=== PATIENT | female | born 1995 | race Asian ===

== ENCOUNTER → 2017-07-04 | Outpatient (CLI) | payer OTHER | LOC: FIMAGING 14:00 | PROVIDERS: ATTEND Internal Medicine | DX: M41.86 Other forms of scoliosis, lumbar region (principal) ==

== ENCOUNTER → 2017-08-28 | Outpatient (CLI) | payer OTHER ==
[~2017-08-28] MED LIST: GADOBUTROL 10 ML VIAL IVP ONE
== END ==
LOC: FIMAGING 13:49
PROVIDERS: ATTEND Psychiatry & Neurology Neurology
DX: G93.89 Other specified disorders of brain (principal); F07.81 Postconcussional syndrome
CPT/HCPCS: A9585

== ENCOUNTER → 2018-01-07 | Outpatient (CLI) | payer OTHER | LOC: FIMAGING 09:11 | PROVIDERS: ATTEND Surgery | DX: R10.9 Unspecified abdominal pain (principal); Z87.828 Personal history of other (healed) physical injury and trauma ==

== ENCOUNTER 2018-03-31 05:51 | Day surgery (SDC) | payer OTHER ==
[2018-03-31] MEDS ORDERED: ceFAZolin 2 GM/DEXTROSE 100 ML IV ONE (06:05)
[2018-03-31] MEDS ORDERED: LIDOCAINE 1% 2 ML INJ ID PRN (06:06)
[2018-03-31] MEDS ORDERED: LR 1,000 ML IV ONE (06:06)
--- NOTE | 2018-03-31 06:53 | PDANEPAE ---
ANE History of Present Illness Mass left neck and axilla ANE Past Medical History - Cardiovascular History Hx Hypertension: No Hx Arrhythmias: No Hx Chest Pain: No Hx Coronary Artery / Peripheral Vascular Disease: No Hx CHF / Valvular Disease: No Hx Palpitations: No - Pulmonary History Hx COPD: No Hx Asthma/Reactive Airway Disease: Yes Hx Recent Upper Respiratory Infection: No Hx Oxygen in Use at Home: No Hx Sleep Apnea: No Sleep Apnea Screening Result - Last Documented: Negative Pulmonary History Comment: exercise triggers asthma - Neurologic History Hx Cerebrovascular Accident: No Hx Seizures: No Hx Dementia: No - Endocrine History Hx Diabetes: No - Renal History Hx Renal Disorders: No - Liver History Hx Hepatic Disorders: No - Neurological & Psychiatric Hx Hx Neurological and Psychiatric Disorders: Yes Neurological / Psychiatric History Comment: anxiety,depression - Cancer History Hx Cancer: No - Congenital Disorder History Hx Congenital Disorders: No - GI History Hx Gastrointestinal Disorders: Yes Gastrointestinal History Comment: IBS constipation - Other Health History Other Health History: none - Chronic Pain History Chronic Pain: Yes (back,left side of jaw) - Surgical History Prior Surgeries: none in past 5 yrs ANE Review of Systems Review of Systems: - Exercise capacity METS (RN): 4 METS ANE Patient History - Allergies Allergies/Adverse Reactions: amoxicillin Allergy (Verified 03/28/18 16:34) Rash - Home Medications Home medications: home medication list seen and reviewed Home Medications: Albuterol 02/25/15 [Last Taken 10/19/17] Advil 03/28/18 [Last Taken 03/26/18] Tizanidine HCl 03/28/18 [Last Taken 03/14/18] Tramadol HCl 03/28/18 [Last Taken 3 Months Ago ~12/30/17] Ondansetron HCl [Zofran] 03/31/18 [Last Taken 1 Week Ago ~03/24/18] Tylenol 03/31/18 [Last Taken 3 Weeks Ago ~03/10/18] - NPO status NPO Status: no food or drink >8 hours NPO Since - Liquids (Date): 03/30/18 NPO Since - Liquids (Time): 23:45 NPO Since - Solids (Date): 03/30/18 NPO Since - Solids (Time): 23:45 - Anes Hx Anes Hx: no prior problems - Smoking Hx Smoking Status: Never smoked - Family Anes Hx Family Hx Anesthesia Complications: none ANE Labs/Vital Signs - Vital Signs Blood Pressure: 113/76 Heart Rate: 79 Respiratory Rate: 16 O2 Sat (%): 96 Height: 165.1 cm Weight: 63.503 kg ANE Physical Exam - Airway Neck exam: FROM Mallampati Score: Class 2 Mouth exam: normal dental/mouth exam - Pulmonary Pulmonary: no respiratory distress - Cardiovascular Cardiovascular: regular rate and rhythym - ASA Status ASA Status: II ANE Anesthesia Plan Anesthesia Plan: GA w LMA
[2018-03-31] MEDS ORDERED: MIDAZOLAM 2 MG/2 ML VIAL IVP ONE (07:02)
--- NOTE | 2018-03-31 07:06 | PDHPUP ---
History & Physical Update H&P update statement: This history and physical update is based on an assessment of the patient which was completed after admission or registration (within 24 hours), but prior to the surgery/procedure. H&P update: H&P reviewed & patient examined, no change in patient's condition since H&P completed
[2018-03-31] MEDS ORDERED: BUPIVACAINE 0.5% 30 ML SDV ONE (07:07)
[2018-03-31] MEDS ORDERED: SCOPOLAMINE HYDROBROMIDE 1 MG/3 DAYS PATCH TD ONE (07:12)
[2018-03-31] MEDS ORDERED: SCOPOLAMINE HYDROBROMIDE 1 MG/3 DAYS PATCH TD SCH (07:15)
[2018-03-31] MEDS ORDERED: LIDOCAINE 2% 5 ML SDV ONE (07:15)
[2018-03-31] MEDS ORDERED: PROPOFOL 200 MG/20 ML VIAL ONE (07:15)
[2018-03-31] MEDS ORDERED: fentaNYL 100 MCG/2 ML INJ ONE ×3 (07:15→09:34)
[2018-03-31] MEDS ORDERED: GLYCOPYRROLATE 0.2 MG/1 ML VIAL ONE (07:16)
[2018-03-31] MEDS ORDERED: METOCLOPRAMIDE 10 MG/2 ML VIAL ONE (07:16)
[2018-03-31] MEDS ORDERED: DEXAMETHASONE 4 MG/ML VIAL ONE (07:39)
[2018-03-31] MEDS ORDERED: ONDANSETRON 4 MG/2 ML VIAL ONE (07:39)
--- NOTE | 2018-03-31 09:08 | POSTOPPROG ---
Post Op Note Date of Operation: 03/31/18 Surgeon: Ric Vargas Tractor Crane Operator: Dionicio Anesthesiologist: Lloyd Anesthesia: GET(General Endotracheal) Pre-op Diagnosis: Cervical and axillary lymphadenopathy Post-op Diagnosis: same Indication: Diagnosis Procedure: L cervical and axillary LN excisional biopsies Findings: Firm LNs with cheesy drainage, c/w afb Inf/Abcess present in the surg proc area at time of surgery?: Yes Depth: Superfical (Skin SQ) EBL: Minimal Specimen(s): Left cervical and axillary lymph nodes for culture (aerobic/anaerobic, fungal, afb), fresh for [facility], fresh for [facility]
--- NOTE | 2018-03-31 09:13 | POSTANESTH ---
Post Anesthetic Evaluation Cardiovascular Status: Similar to Pre-Op Cond Respiratory Status: Similar to Pre-op Cond. Level of Consciousness/Mental Status: Can Participate in Eval Pain Control: Adequate, Prn Tx Ordered Nausea/Vomiting Control: Adequate, Prn Tx Ordered Complications Possibly Related to Anesthesia: None Noted
[2018-03-31] MEDS ORDERED: PROMETHAZINE HCL 25 MG/ML INJ IVP PRN (10:03)
[2018-03-31] MEDS ORDERED: HYDROmorphONE/DILAUDID 2 MG/ML INJ IVP PRN (10:03)
[2018-03-31] MEDS ORDERED: fentaNYL 100 MCG/2 ML INJ IVP PRN (10:03)
[2018-03-31] MEDS ORDERED: NALOXONE HCL 0.4 MG/ML INJ IVP PRN (10:03)
[2018-03-31] MEDS ORDERED: ONDANSETRON 4 MG/2 ML VIAL IVP PRN (10:03)
[2018-03-31] MEDS ORDERED: HYDROCODONE/APAP 5/325 TAB ONE (10:58)
[2018-03-31] MEDS ORDERED: HYDROCODONE/APAP 5/325 TAB PO ONE (11:00)
[2018-03-31 11:12] VITALS: BP 111/78
--- NOTE | 2018-04-02 07:58 | GOP ---
DATE OF OPERATION: SURGEON: Ric Vargas MD VASCULAR TECHNOLOGIST: Jenny Greenberg NP ANESTHESIOLOGIST: Dr. Burrell PREOPERATIVE DIAGNOSIS: Multiple areas of adenopathy. POSTOPERATIVE DIAGNOSIS: Multiple areas of adenopathy, pathology pending. PROCEDURE PERFORMED: 1. Excision of a neck mass, probable sebaceous cyst. 2. Deep cervical lymph node biopsies. 3. Left axillary node biopsies. FINDINGS: The patient was found to have unique-appearing lymph nodes which appeared to have caseatin g necrosis. Final pathology is pending. ESTIMATED BLOOD LOSS: Less than 15 cc. DESCRIPTION OF PROCEDURE: The patient was taken to the operating room where she received satisfactor y general endotracheal anesthesia. She was placed in the supine position, prepped and draped in usua l sterile fashion with the left arm outstretched on an arm board and the neck extended. A short inci rj was made at the base of the axilla. Dissection extended down through the subcutaneous tissue an d the axillary fascia was incised bimanual. In the axilla, 2 large nodes were encountered. These we re carefully dissected free and taken close the capsule of the node. Hemostasis was obtained by hemo clips and the specimens were both sent to Pathology. Hemostasis was assured. The wound was infiltra cristiane with 0.5% Marcaine. The wound was closed in layers using 3-0 Vicryl for the subcutaneous tissue, 4-0 Monocryl subcuticular stitch for the skin. Attention was then turned to the neck where a transverse incision was made where a previous scar was present, and a large palpable node was present. Dissection extended down through the platysma and nova bcutaneous tissue. Two large, greater than 1.5 cm lymph nodes were then dissected free carefully, an d again, hemostasis obtained by hemoclips and electrocautery, and these 2 nodes were dissected free a nd submitted to Pathology. A 2nd incision was made more posteriorly in the neck over a palpable node dissection, again extended down through the platysma. However, this node was very affixed and hard to dissect free, and appeared to be quite adherent to the spinal accessory nerve, and after teasing t he node away slightly, the attempt was abandoned because of the proximity and the attachment to the s yoko accessory nerve. That wound was closed with 3-0 Vicryl for the subcutaneous tissue and 4-0 Mon ocryl subcuticular stitch for the skin. A final 3rd neck incision was made in the previous old scar. An elliptical incision was made in the old scar and appeared to contain a possible inclusion cyst. This was completely dissected free and removed. Hemostasis was obtained. All wounds were infiltrat ed with 0.5% Marcaine. The skin was closed with 4-0 Monocryl subcuticular sutures. She tolerated th e procedure well, and taken to the recovery room in good condition. There were no complications. [facility] pathology is pending. /[id number]/MODL
== END 2018-03-31 11:44 | disposition home or self-care (01) ==
LOC: FSGY 05:51
PROVIDERS: ATTEND Surgery
PROC: 07B20ZX Excision of Left Neck Lymphatic, Open Approach, Diagnostic (ICD-10-PCS; principal; 2018-03-31 07:15)
PROC: 0JB50ZX Excision of Left Neck Subcutaneous Tissue and Fascia, Open Approach, Diagnostic (ICD-10-PCS; principal; 2018-03-31 07:15)
PROC: 07B60ZX Excision of Left Axillary Lymphatic, Open Approach, Diagnostic (ICD-10-PCS; principal; 2018-03-31 07:15)
DX: R59.0 Localized enlarged lymph nodes (principal); J45.909 Unspecified asthma, uncomplicated; M54.2 Cervicalgia; R41.9 Unspecified symptoms and signs involving cognitive functions and awareness; F43.10 Post-traumatic stress disorder, unspecified; S06.0X9S Concussion with loss of consciousness of unspecified duration, sequela; V99.XXXS Unspecified transport accident, sequela
CPT/HCPCS: 88184-90; 88185-91; J0690; J1100; J2250; J2405; J2704; J2765; J3010

== ENCOUNTER → 2018-04-03 | Outpatient (CLI) | payer OTHER | LOC: FIMAGING 15:56 | PROVIDERS: ATTEND Internal Medicine Infectious Disease | DX: J98.09 Other diseases of bronchus, not elsewhere classified (principal) ==